=== PATIENT | female | born 1995 | race Hispanic/Latino ===

== ENCOUNTER 2016-03-07 09:26 | Emergency (ER) | payer OTHER ==
[2016-03-07] MEDS ORDERED: SODIUM CHLORIDE 0.9% 1,000 ML ONE (10:20)
[2016-03-07] MEDS ORDERED: ONDANSETRON 4 MG VIAL ONE (10:20)
[2016-03-07] MEDS ORDERED: ATROPINE 1 MG/10 ML SYRINGE IV ONE ×2 (21:26)
== END 2016-03-07 12:25 | disposition home or self-care (01) ==
LOC: ER 09:26
DX: A08.4 Viral intestinal infection, unspecified (principal)
CPT/HCPCS: 96361 ×2; 96374 ×2; 99283; J2405